=== PATIENT | male | born 1985 | race Caucasian/White ===

== ENCOUNTER 2018-06-29 07:47 | Inpatient (IN) | payer SELFPAY ==
[~2018-06-29] VITALS: Ht 177.8 cm; Wt 86.0 kg
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
[2018-06-29 08:20] LABS: BASOPHILS # (AUTO) 0.03 x10^3/uL (0-0.1); BASOPHILS % (AUTO) 0 % (0-1); EOSINOPHILS # (AUTO) 0.09 x10^3/uL (0-0.4); EOSINOPHILS % (AUTO) 1 % (1-7); LYMPHOCYTES # (AUTO) 1.62 x10^3/uL (1-3.4); LYMPHOCYTES % (AUTO) 22 % (22-44); MD NO; MEAN CORPUSCULAR HEMOGLOBIN 27.8 pg (27.5-34.5); MEAN CORPUSCULAR HGB CONC 33.5 g/dL (33.2-36.2); MEAN CORPUSCULAR VOLUME 83.1 fL (81-97); MEAN PLATELET VOLUME 8.8 fL (7.4-10.4); MONOCYTES # (AUTO) 0.47 x10^3/uL (0.2-0.8); MONOCYTES % (AUTO) 6 % (2-9); NEUTROPHILS # (AUTO) 5.17 x10^3/uL (1.8-6.8); NEUTROPHILS % (AUTO) 70 % (42-75); PLATELET COUNT 320 x10^3/uL (130-400); RED BLOOD COUNT 5.77 x10^6/uL (4.38-5.82); RED CELL DISTRIBUTION WIDTH 13.4 % (9.4-14.8)
[2018-06-29 08:29] LABS: ALANINE AMINOTRANSFERASE 34 U/L (12-78); ALBUMIN 4.3 g/dL (3.4-5.0); ANION GAP 7 mmol/L (5-15); CALCIUM 9.1 mg/dL (8.5-10.1); CHLORIDE 106 mmol/L (98-107); CREATININE 0.97 mg/dL (0.7-1.3)
[2018-06-29 08:31] LABS: ALKALINE PHOSPHATASE 58 U/L (45-117); BILIRUBIN,TOTAL 0.4 mg/dL (0.2-1.0); TOTAL PROTEIN 8.1 g/dL (6.4-8.2)
[2018-06-29 08:39] LABS: ACETAMINOPHEN < 2 mcg/mL (10-30); SALICYLATE LEVEL < 1.7 mg/dL (2.8-20.0)
--- NOTE | 2018-06-29 08:46 | NUR ---
PT. 'S URINE WAS SENT. PT. WAS GIVEN BREAKFAST.
[2018-06-29 09:05] LABS: AMPHETAMINE SCREEN, URINE Negative (Negative); BARBITURATE SCREEN, URINE Negative (Negative); BENZODIAZEPINE SCREEN, URINE Negative (Negative); CANNABINOID SCREEN, URINE Positive (Negative); COCAINE SCREEN, URINE Negative (Negative); METHADONE SCREEN, URINE Negative (Negative); OPIATE SCREEN, URINE Negative (Negative)
[2018-06-29] MEDS ORDERED: LORazepam 1MG TABLET ONE (09:37)
--- NOTE | 2018-06-29 09:44 | NUR ---
THROUGH PUT RN: CALLED SOC FOR CONSULT
[2018-06-29] MEDS ORDERED: LORazepam 1MG TABLET PO ONE (10:00)
--- NOTE | 2018-06-29 10:30 | NUR ---
PATIETN TALKING TO TELEPSYCH. PATIENT HAS DAD AT BEDSIDE. HE IS SAD ABOUT RECENT INTERACTION WITH [employer]IN[employer], AND VERY ANXIOUS ABOUT IT. I GAVE ATIVAN REQUESTED TO HELP HIM. DAD SUPPORTIVE AT BEDSIDE. LUNCH TRAY GIVEN.
--- NOTE | 2018-06-29 11:08 | NUR ---
PATIENT PLACED ON LEGAL HOLD. PATIENT CALM AND ACCEPTING. ATE ALL OF LUNCH.
--- NOTE | 2018-06-29 11:26 | NUR ---
dad navarro [phone], adoptive parent since he was 17, very supportive and kind. he would like updates on patient progress.educated him on visitation possible if patient cooperative and calm, and he should call ahead to check with rn.
--- NOTE | 2018-06-29 11:42 | NUR ---
PATIENT HAS BELONGINGS OF HARM REMOVED. SITTER OUTSIDE DOOR. HE IS CALM AND COOPERATIVE. ATE LUNCH
--- NOTE | 2018-06-29 13:25 | NUR ---
patietn report given to chetan chun, patient rtg upstairs.
--- NOTE | 2018-06-29 13:31 | NUR ---
patient report given to adiel. they are ready for him on 2N once admit orders entered.
--- NOTE | 2018-06-29 13:35 | NUR ---
called doctor shawnee rios he said the patient has a daytime admitting md and he will page group to call me back with the doctor and orders
--- NOTE | 2018-06-29 14:51 | NUR ---
followed up with dr mallory and manny. manny wrote inpatient orders and let md shawnee know. he states that they will now send an md to admit patient. patient is calm, in room. will go to 2 N once admission completed.
--- NOTE | 2018-06-29 15:24 | NUR ---
patient left with two techs to 2n. patient is calm.
[2018-06-29] MEDS ORDERED: POLYETHYLENE GLYCOL 17 GM PACKET PO PRN (15:30)
[2018-06-29] MEDS ORDERED: ONDANSETRON ODT 4 MG PO PRN (15:30)
[2018-06-29 15:51] VITALS: BP 142/94
[2018-06-29] MEDS: LORazepam 1MG TABLET PO PRN (16:59)
[2018-06-29 17:07] VITALS: BP 142/94
[2018-06-29 18:28] VITALS: BP 118/78
[2018-06-29 20:00] VITALS: BP 118/78
[2018-06-30] MEDS: LORazepam 1MG TABLET PO PRN ×4 (02:31→21:33)
[2018-06-30 06:59] VITALS: BP 131/83
[2018-06-30] MEDS: SENNA/DOCUSATE TABLET PO SCH (07:20)
[2018-06-30] MEDS ORDERED: ZIPRASIDONE 20 MG INJ IM ONE (09:16)
[2018-06-30] MEDS ORDERED: HALOPERIDOL 5 MG/ML ONE (09:19)
[2018-06-30] MEDS ORDERED: HALOPERIDOL 5 MG/ML IM ONE ×2 (10:00)
[2018-06-30] MEDS ORDERED: HALOPERIDOL 5 MG/ML IM PRN (10:00)
[2018-06-30] MEDS ORDERED: DULOXETINE 30 MG CAPSULE.DR PO SCH (10:00)
[2018-06-30] MEDS: DIVALPROEX 500 MG TABLET.DR PO SCH ×2 (11:57→21:33)
[2018-06-30 12:10] LABS: BASOPHILS # (AUTO) 0.04 x10^3/uL (0-0.1); BASOPHILS % (AUTO) 1 % (0-1); EOSINOPHILS # (AUTO) 0.08 x10^3/uL (0-0.4); EOSINOPHILS % (AUTO) 1 % (1-7); LYMPHOCYTES # (AUTO) 2.04 x10^3/uL (1-3.4); LYMPHOCYTES % (AUTO) 28 % (22-44); MD NO; MEAN CORPUSCULAR HEMOGLOBIN 27.7 pg (27.5-34.5); MEAN CORPUSCULAR HGB CONC 33.3 g/dL (33.2-36.2); MEAN CORPUSCULAR VOLUME 83.1 fL (81-97); MEAN PLATELET VOLUME 8.9 fL (7.4-10.4); MONOCYTES # (AUTO) 0.48 x10^3/uL (0.2-0.8); MONOCYTES % (AUTO) 7 % (2-9); NEUTROPHILS # (AUTO) 4.64 x10^3/uL (1.8-6.8); NEUTROPHILS % (AUTO) 64 % (42-75); PLATELET COUNT 304 x10^3/uL (130-400); RED BLOOD COUNT 5.78 x10^6/uL (4.38-5.82); RED CELL DISTRIBUTION WIDTH 13.3 % (9.4-14.8)
[2018-06-30 12:17] LABS: ALBUMIN 4.2 g/dL (3.4-5.0); ANION GAP 6 mmol/L (5-15); CALCIUM 9.2 mg/dL (8.5-10.1); CHLORIDE 106 mmol/L (98-107)
[2018-06-30 12:21] LABS: ALANINE AMINOTRANSFERASE 32 U/L (12-78); ALKALINE PHOSPHATASE 58 U/L (45-117); BILIRUBIN,TOTAL 0.8 mg/dL (0.2-1.0); CREATININE 0.97 mg/dL (0.7-1.3); TOTAL PROTEIN 7.9 g/dL (6.4-8.2)
[2018-06-30 13:24] VITALS: BP 120/84
[2018-06-30 15:40] LABS: MICROSCOPIC NOT IND
[2018-06-30 15:49] LABS: CULTURE INDICATED? NO
[2018-06-30 19:34] VITALS: BP 116/74
[2018-06-30 20:59] LABS: THYROID STIMULATING HORMONE 1.17 mIU/L (0.358-3.740)
[2018-07-01 08:00] VITALS: BP 120/85
[2018-07-01] MEDS: DIVALPROEX 500 MG TABLET.DR PO SCH ×2 (08:40→21:13)
[2018-07-01] MEDS: LORazepam 1MG TABLET PO PRN ×2 (08:40→19:11)
[2018-07-01] MEDS: DULOXETINE 30 MG CAPSULE.DR PO SCH (08:40)
[2018-07-01] MEDS: SENNA/DOCUSATE TABLET PO SCH (08:45)
[2018-07-01 19:41] VITALS: BP 122/83
[2018-07-02] MEDS: LORazepam 1MG TABLET PO PRN ×2 (03:06→20:33)
[2018-07-02 08:00] VITALS: BP 106/69
[2018-07-02] MEDS: DIVALPROEX 500 MG TABLET.DR PO SCH ×2 (08:04→20:33)
[2018-07-02] MEDS: DULOXETINE 30 MG CAPSULE.DR PO SCH (08:04)
[2018-07-02] MEDS: SENNA/DOCUSATE TABLET PO SCH (08:09)
[2018-07-02 20:04] VITALS: BP 118/78
[2018-07-03 07:47] VITALS: BP 111/89
[2018-07-03] MEDS: DULOXETINE 30 MG CAPSULE.DR PO SCH (09:36)
[2018-07-03] MEDS: SENNA/DOCUSATE TABLET PO SCH (09:36)
[2018-07-03] MEDS: DIVALPROEX 500 MG TABLET.DR PO SCH ×2 (09:36→20:16)
[2018-07-03] MEDS: LORazepam 1MG TABLET PO PRN (19:16)
[2018-07-03 20:15] VITALS: BP 113/82
[2018-07-03] MEDS: DIPHENHYDRAMINE 25 MG CAPSULE PO PRN (20:16)
[2018-07-04 07:27] VITALS: BP 118/77
[2018-07-04] MEDS: DULOXETINE 30 MG CAPSULE.DR PO SCH (07:47)
[2018-07-04] MEDS: DIVALPROEX 500 MG TABLET.DR PO SCH ×2 (07:47→20:30)
[2018-07-04] MEDS: SENNA/DOCUSATE TABLET PO SCH (07:48)
[2018-07-04] MEDS: LORazepam 1MG TABLET PO PRN ×2 (10:43→20:30)
[2018-07-04 19:04] VITALS: BP 120/79
[2018-07-05 07:49] VITALS: BP 118/82
[2018-07-05] MEDS: DIVALPROEX 500 MG TABLET.DR PO SCH ×2 (08:41→19:57)
[2018-07-05] MEDS: DULOXETINE 30 MG CAPSULE.DR PO SCH (08:42)
[2018-07-05] MEDS: SENNA/DOCUSATE TABLET PO SCH (08:42)
[2018-07-05] MEDS: LORazepam 1MG TABLET PO PRN (19:57)
[2018-07-05] MEDS: DIPHENHYDRAMINE 25 MG CAPSULE PO PRN (21:33)
[2018-07-06 07:27] VITALS: BP 111/76
[2018-07-06] MEDS: DULOXETINE 30 MG CAPSULE.DR PO SCH (07:58)
[2018-07-06] MEDS: DIVALPROEX 500 MG TABLET.DR PO SCH (07:58)
[2018-07-06] MEDS: SENNA/DOCUSATE TABLET PO SCH (07:58)
[2018-07-06] MEDS ORDERED: DULO30CA2 PO (10:44)
[2018-07-06] MEDS ORDERED: DIVA-61 PO (10:44)
== END 2018-07-06 11:37 | disposition home or self-care (01) | DRG 881 ==
LOC: ED 08:59 → 2N 14:47 → OBSVTOIN 14:48 → UNDOADMOB 14:59 → INTOOBSV 14:59 → EDIP 14:59 → 2N 15:30
PROVIDERS: ADMIT Internal Medicine; ATTEND Internal Medicine
DX: F32.9 Major depressive disorder, single episode, unspecified (principal); R45.851 Suicidal ideations; F41.9 Anxiety disorder, unspecified; F12.10 Cannabis abuse, uncomplicated
CPT/HCPCS: 36415; 80053; 80164; 80307; 80329; 81003; 82607; 84443; 85025; 93005; 99285; G0378; J3486; G0480; J1630; Q0163

== ENCOUNTER 2019-01-26 18:11 | Emergency (ER) | payer SELFPAY ==
[~2019-01-26] VITALS: Ht 177.8 cm; Wt 82.0 kg
[~2019-01-26 18:11] MED LIST: DIVA-61 PO; DULO30CA2 PO
[2019-01-26] MEDS ORDERED: DEXAMETHASONE 4 MG/ML, 1ML ONE (19:46)
[2019-01-26] MEDS ORDERED: ONDANSETRON ODT 4 MG ONE (19:46)
[2019-01-26] MEDS ORDERED: ONDANSETRON ODT 4 MG PO ONE (20:00)
[2019-01-26] MEDS ORDERED: DEXAMETHASONE 4 MG/ML, 1ML PO ONE (20:00)
[2019-01-26 20:36] VITALS: BP 125/87
[2019-01-26] MEDS ORDERED: ACETAMINOPHEN 500 MG TABLET ONE (20:37)
== END 2019-01-27 01:49 | disposition home or self-care (01) ==
LOC: ED 20:05
DX: S29.012A Strain of muscle and tendon of back wall of thorax, initial encounter (principal); J02.0 Streptococcal pharyngitis; X58.XXXA Exposure to other specified factors, initial encounter; Y93.89 Activity, other specified; Y92.89 Other specified places as the place of occurrence of the external cause; Y99.8 Other external cause status
CPT/HCPCS: 71046; 99283; J1100; Q0162

== ENCOUNTER 2019-11-23 00:54 | Emergency (ER) | payer SELFPAY ==
[~2019-11-23] VITALS: Ht 177.8 cm; Wt 89.0 kg
[2019-11-23 00:57] VITALS: BP 114/71
[2019-11-23] MEDS ORDERED: KETOROLAC 30 MG/1 ML ONE (01:24)
[2019-11-23] MEDS ORDERED: DIAZEPAM 5 MG TABLET ONE (01:24)
[2019-11-23] MEDS ORDERED: KETOROLAC 60 MG/2 ML IM ONE (01:30)
[2019-11-23] MEDS ORDERED: DIAZEPAM 5 MG TABLET PO ONE (01:30)
== END 2019-11-23 02:04 | disposition home or self-care (01) ==
LOC: ED 02:01
DX: M54.41 Lumbago with sciatica, right side (principal); R20.2 Paresthesia of skin
CPT/HCPCS: 96372; 99283; J1885

== ENCOUNTER 2020-11-21 02:56 | Emergency (ER) | payer MEDICAID ==
[~2020-11-21] VITALS: Ht 180.3 cm; Wt 91.0 kg
--- NOTE | 2020-11-21 05:40 | NUR ---
assessment made. chart up for MD to see.
--- NOTE | 2020-11-21 09:06 | NUR ---
RECEIVED REPORT FROM ANDREW ANTON. PT REPORTS FEELING BETTER AT THIS TIME. VSS. PT'S CHART UP FOR DC, AWAITING PAPERWORK.
[2020-11-21 09:07] VITALS: BP 134/84
== END 2020-11-21 09:10 | disposition home or self-care (01) ==
LOC: ED 09:00
DX: F43.0 Acute stress reaction (principal); F41.9 Anxiety disorder, unspecified; Z59.0 Homelessness
CPT/HCPCS: 99283; Q0177